=== PATIENT | female | born 1965 | race Caucasian/White ===

== ENCOUNTER 2016-08-13 00:18 | Emergency (ER) | payer OTHER ==
[~2016-08-13] VITALS: Ht 162.6 cm; Wt 70.3 kg
[2016-08-13 00:37] VITALS: BP 111/82
== END 2016-08-13 01:17 | disposition left against medical advice (07) ==
LOC: ER 00:18
DX: F29 Unspecified psychosis not due to a substance or known physiological condition (principal); Z53.21 Procedure and treatment not carried out due to patient leaving prior to being seen by health care provider